=== PATIENT | male | born 1990 | race African-American/Black ===

== ENCOUNTER 2016-04-16 07:25 | Emergency (ER) | payer OTHER ==
[~2016-04-16] VITALS: Ht 182.9 cm; Wt 138.7 kg
[~2016-04-16 07:25] MED LIST: AMOXICILLIN500 M1 PO; ATARAX,VISTARIL25 MG PO; FLEXERIL5 MG PO; INDOCIN25 MG PO; LANTUS 10100 UNITS/ SC; LANTUS 3 M100 UNITS1 SC; LEVEMIR FL100 UNITS/ SC; LISINOPRIL5 MG PO; LODINE300 MG PO; METFORMIN HCL500 M1 PO; METFORMIN HCL500 MG PO; NAPROSYN500 MG PO; NO MEDICATIONS; PRAVASTATIN SOD80 MG PO
[2016-04-16 07:27] VITALS: BP 131/81
[2016-04-16] MEDS ORDERED: PROCTOFOAM-HC10 GM PR (07:49)
[2016-04-16] MEDS ORDERED: STOOL SOFTENER240 MG PO (07:49)
== END 2016-04-16 08:01 | disposition home or self-care (01) ==
LOC: EME 07:25
DX: K64.8 Other hemorrhoids (principal); E11.9 Type 2 diabetes mellitus without complications; Z79.84 Long term (current) use of oral hypoglycemic drugs
CPT/HCPCS: 99281; 99283

== ENCOUNTER 2016-10-16 21:01 | Emergency (ER) | payer OTHER ==
[~2016-10-16] VITALS: Ht 180.3 cm; Wt 101.2 kg
[~2016-10-16 21:01] MED LIST changes: +PROCTOFOAM-HC10 GM PR; +STOOL SOFTENER240 MG PO
[2016-10-16 21:47] LABS: CARBON DIOXIDE (BICARBONATE) 30.2 MEQ/L (20-31); EOSINOPHIL (%) 0 % (0-5); HEMATOCRIT 43.3 % (38.0-50.0); IMMATURE GRANULOCYTE (%) 0.2 % (0.0-0.7); INSTRUMENT ABS NEUTROPHIL CT 3.1 K/uL; MCH 28.4 PG (29.0-34.0); MCV 85.9 FL (86-99); MEAN PLAT.VOLUME 9.4 uM^3 (9.0-12.4); MONOCYTE (%) 4.5 % (3-12); MONOCYTE COUNT 0.3 K/uL (0-0.8); NEUTROPHIL (%) 48.3 % (45-76); NEUTROPHIL COUNT 3.1 K/uL (1.8-6.4); PLATELET COUNT 202 K/uL (156-360); RBC DIS.WIDTH-CV 12.2 % (11.8-14.6); RBC DIS.WIDTH-SD 38.2 % (39-53); RED BLOOD COUNT 5.04 M/uL (4.00-5.50); WHITE BLOOD COUNT 6.4 K/uL (4.1-10.2)
[2016-10-16 21:57] LABS: CHLORIDE 102 mEq/L (99-109); POTASSIUM 3.9 mEq/L (3.7-5.4); SODIUM 135 mEq/L (136-147)
[2016-10-16 22:00] LABS: ANION GAP 9 MEQ/L (2-14)
[2016-10-16 22:01] LABS: TOTAL BILIRUBIN 0.4 mg/dL (0.0-1.0)
[2016-10-16 22:02] LABS: ALKALINE PHOSPHATASE 67 IU/L (3-129)
[2016-10-16 22:03] LABS: GFR ESTIMATE (CALCULATED) > 59 mL/min/
[2016-10-16 22:04] LABS: DIRECT BILIRUBIN 0.2 mg/dL (0.0-0.3); UREA NITROGEN (BUN) 12 mg/dL (9-23)
[2016-10-16 22:06] LABS: LIPASE 23 U/L (1.0-51.0)
[2016-10-16 22:15] LABS: GLUCOSE 444 mg/dL (70-99)
[2016-10-16] MEDS ORDERED: METFORMIN HCL500 M4 PO ×2 (22:39→22:40)
[2016-10-16 23:17] VITALS: BP 152/97
[2016-10-17 16:53] LABS: POINT-OF-CARE METER ID UU13113778; POINT-OF-CARE USER ID 611181311
== END 2016-10-16 23:17 | disposition home or self-care (01) ==
LOC: EME 21:01
PROVIDERS: Emergency Medicine
DX: E11.40 Type 2 diabetes mellitus with diabetic neuropathy, unspecified (principal); E11.65 Type 2 diabetes mellitus with hyperglycemia; Z91.14 Patient's other noncompliance with medication regimen; Z79.84 Long term (current) use of oral hypoglycemic drugs; F17.200 Nicotine dependence, unspecified, uncomplicated
CPT/HCPCS: 80048; 80076; 81003; 82803; 82948; 83690; 85025; 99281; 99284

== ENCOUNTER 2016-11-04 17:38 | Emergency (ER) | payer OTHER ==
[~2016-11-04] VITALS: Ht 180.3 cm; Wt 97.7 kg
[~2016-11-04 17:38] MED LIST changes: +METFORMIN HCL500 M4 PO
[2016-11-04 17:54] LABS: POINT-OF-CARE METER ID UU13113778
[2016-11-04 19:16] LABS: HEMATOCRIT 43.4 % (38.0-50.0); MCHC 34.3 G/DL (30.0-36.0); MCV 84.6 FL (86-99); MEAN PLAT.VOLUME 9.3 uM^3 (9.0-12.4); PLATELET COUNT 255 K/uL (156-360); RBC DIS.WIDTH-CV 12.1 % (11.8-14.6); RBC DIS.WIDTH-SD 37.2 % (39-53); RED BLOOD COUNT 5.13 M/uL (4.00-5.50)
[2016-11-04 19:27] LABS: CHLORIDE 105 mEq/L (99-109); POTASSIUM 3.6 mEq/L (3.7-5.4); SODIUM 139 mEq/L (136-147)
[2016-11-04 19:29] LABS: GLUCOSE 167 mg/dL (70-99)
[2016-11-04 19:31] LABS: ANION GAP 8 MEQ/L (2-14); TOTAL BILIRUBIN 0.5 mg/dL (0.0-1.0)
[2016-11-04 19:32] LABS: SERUM ETHYL ALCOHOL < 10 mg/dL
[2016-11-04 19:33] LABS: ALKALINE PHOSPHATASE 52 IU/L (3-129); GFR ESTIMATE (CALCULATED) > 59 mL/min/
[2016-11-04 19:33] LABS: ADD MIUA? YES; BILIRUBIN NEGATIVE; BLOOD NEGATIVE; COLOR AMBER ((YELLOW)); GLUCOSE (STRIP) 50; KETONES 5; LEUKOCYTES NEGATIVE; NITRITE NEGATIVE; PROTEIN (STRIP) 30; SPECIFIC GRAVITY 1.031 (1.000-1.030); UROBILINOGEN 0.2 MG/DL (0.2-1.0)
[2016-11-04 19:34] LABS: UREA NITROGEN (BUN) 10 mg/dL (9-23)
[2016-11-04 19:48] LABS: ADD MEDTOX COMMENT Y; AMPHETAMINE NEGATIVE (500 ng/mL); BARBITURATES NEGATIVE (200 ng/mL); BENZODIAZEPINES NEGATIVE (150 ng/mL); COCAINE NEGATIVE (150 ng/mL); INTERNAL CONTROLS VALID? YES; METHADONE NEGATIVE (200 ng/mL); METHAMPHETAMINE NEGATIVE (500 ng/mL); OPIATES (MORPHINE) NEGATIVE (100 ng/mL); OXYCODONE NEGATIVE (100 ng/mL); PHENCYCLIDINE NEGATIVE (25 ng/mL); PROPOXYPHENE NEGATIVE (300 ng/mL); THC CANNABINOIDS PRESUMPTIVE POSITIVE (50 ng/mL); TRICYCLIC ANTIDEPRESSANTS NEGATIVE (300 ng/mL)
[2016-11-04 20:11] LABS: AMORPHOUS URATES CRYSTALS 4+; BACTERIA 1+ /HPF; EPITHELIAL CELLS NONE SEEN /HPF; MUCUS NONE SEEN /LPF; RED BLOOD CELLS 0-5 /HPF (0-5); WHITE BLOOD CELLS 0-5 /HPF (0-5)
[2016-11-04 23:40] VITALS: BP 127/88
== END 2016-11-04 23:42 ==
LOC: EME 17:38
PROVIDERS: Emergency Medicine
DX: F33.1 Major depressive disorder, recurrent, moderate (principal); Z59.0 Homelessness; E11.9 Type 2 diabetes mellitus without complications; I10 Essential (primary) hypertension; Z79.84 Long term (current) use of oral hypoglycemic drugs; F17.200 Nicotine dependence, unspecified, uncomplicated
CPT/HCPCS: 80053; 81003; 82948; 84999; 85027; 90837; 99281; 99285; G0480